=== PATIENT | male | born 1975 | race Caucasian/White ===

== ENCOUNTER 2017-03-05 09:57 | Inpatient (IN) | payer SELFPAY ==
[~2017-03-05] VITALS: Ht 167.6 cm; Wt 85.7 kg
[2017-03-05] MEDS ORDERED: diphenhydrAMINE 50 MG/1 ML VIAL IV ONE (10:09)
[2017-03-05] MEDS ORDERED: LORAZEPAM 2 MG/1 ML VIAL IV ONE ×2 (10:09→13:30)
--- NOTE | 2017-03-05 10:12 | NUR ---
40 years old male biba with bizarre behavior, unable to comprehend, placed on patient monitor continuous pulse safety initiated will continue to monitor.
[2017-03-05] MEDS ORDERED: IV NS 1000 ML 1,000 ML IV ONE ×2 (10:15→12:30)
[2017-03-05] MEDS ORDERED: diphenhydrAMINE 50 MG/1 ML VIAL ONE (10:32)
--- NOTE | 2017-03-05 10:32 | NUR ---
PLANT PATHOLOGY TEACHER HERE TO TALK TO PT. PT IS ANSWERING QUESTIONS APPROPRIATELY AT THIS TIME. PREVIOUSLY MEDICATED WITH LORAZEPAM PER MD ORDER.
[2017-03-05] MEDS ORDERED: LORAZEPAM 2 MG/1 ML VIAL ONE ×2 (10:33→13:43)
--- NOTE | 2017-03-05 10:33 | NUR ---
police at bedside to interview pt, lab chest x-ray completed result in progress will continue to monitor.
[2017-03-05 10:34] LABS: BASOPHILS # (AUTO) 0.3 K/uL (0.0-8.0); BASOPHILS % (AUTO) 4.3 % (0.0-2.0); EOSINOPHILS % (AUTO) 0.5 % (0.0-7.0); HEMATOCRIT 44.6 % (40-50); HEMOGLOBIN 14.9 G/DL (14.0-18.0); LYMPHOCYTES # (AUTO) 1.8 K/UL (0.8-4.8); LYMPHOCYTES % (AUTO) 25.3 % (20.5-51.5); MEAN CORPUSCULAR HEMOGLOBIN 29.9 UUG (27.0-31.0); MEAN CORPUSCULAR HGB CONC 33 g/dL (32.0-37.0); MEAN CORPUSCULAR VOLUME 89.7 FL (82.0-92.0); MONOCYTES # (AUTO) 0.6 K/UL (0.1-1.30); MONOCYTES % (AUTO) 8.7 % (0.0-11.0); NEUTROPHILS # (AUTO) 4.2 K/UL (1.8-8.9); NEUTROPHILS % (AUTO) 61.2 % (38.5-71.5); PLATELET COUNT (AUTO) 385 K/UL (150-450); RED BLOOD CELL COUNT(AUTO) 4.97 MIL/UL (4.7-6.1); WHITE BLOOD COUNT (AUTO) 6.9 K/UL (4.0-11.2)
--- NOTE | 2017-03-05 11:07 | NUR ---
pt awake denies pain ambulate to bathroom with steady gait vital stable will continue to monitor.
--- NOTE | 2017-03-05 11:19 | NUR ---
urine collected/sent.
[2017-03-05 11:28] LABS: CREATININE 1.1 mg/dL (0.6-1.3); POTASSIUM 3.3 mmol/L (3.5-5.1)
[2017-03-05 11:34] LABS: BILIRUBIN,TOTAL 0.4 mg/dL (0.2-1.0); TOTAL PROTEIN, SERUM 7.3 g/dL (6.4-8.2)
[2017-03-05 11:50] LABS: *BILIRUBIN,URIN NEGATIVE (NEGATIVE); *BLOOD, URINE NEGATIVE (NEGATIVE); *CLARITY,URINE CLEAR (CLEAR); *COLOR,URINE YELLOW (YELLOW); *KETONES,URINE 1+ (NEGATIVE); *PROTEIN,URINE NEGATIVE (NEGATIVE); LEUKOCYTE ESTERASE ,URINE NEGATIVE (NEGATIVE); NITRITE, URINE NEGATIVE (NEGATIVE); PH,URINE 8.5 (5.0-8.0); UGLUCOSE NEGATIVE (NEGATIVE)
--- NOTE | 2017-03-05 12:16 | NUR ---
pt sleeping, pt in custody police at bedside awaitign for okay to book.
[2017-03-05 12:20] LABS: BACTERIA,URINE NONE SEEN /HPF (NONE SEEN); RBC,URINE NONE SEEN /HPF (0-3); SQUAMOUS EPITHELIAL CELL,UR FEW /HPF (NONE SEEN); WBC,URINE 0-3 /HPF (0-3)
[2017-03-05 12:20] LABS: *AMPHETAMINE, URINE NEGATIVE (NEGATIVE); *BARBITURATE, URINE NEGATIVE (NEGATIVE); *CANNABINOID, URINE NEGATIVE (NEGATIVE); *COCCAINE, URINE POSITIVE (NEGATIVE); *OPIATE, URINE NEGATIVE (NEGATIVE); *PHENCYCLIDINE SCREEN,URINE NEGATIVE (NEGATIVE)
[2017-03-05] MEDS ORDERED: POTASSIUM CHLORIDE 20 MEQ TAB.PRT.SR PO ONE (12:47)
--- NOTE | 2017-03-05 12:50 | NUR ---
pt stable for transfer to unit tele room 206, report given to nurse Fulton all questions answered. pt alert, verbally responsive able to follow simple commands.
[2017-03-05] MEDS ORDERED: POTASSIUM CHLORIDE 20 MEQ POWDER PACKET ONE (13:10)
[2017-03-05] MEDS ORDERED: IV NS 1000 ML 1,000 ML IV PRN (13:13)
[2017-03-05] MEDS ORDERED: HYDROCODONE/APAP 5-325MG TABLET PO PRN (13:15)
[2017-03-05] MEDS ORDERED: MAGNESIUM HYDROXIDE 30 ML LIQUID UDC PO PRN (13:15)
[2017-03-05] MEDS ORDERED: ONDANSETRON 4 MG/2 ML VIAL IV PRN (13:15)
[2017-03-05] MEDS ORDERED: Z GUARD REMEDY PASTE 57 GM TUBE TOP PRN (13:15)
[2017-03-05] MEDS ORDERED: ACETAMINOPHEN 325 MG TABLET PO PRN (13:15)
[2017-03-05] MEDS ORDERED: OLANZAPINE 10 MG VIAL IM ONE ×2 (13:30→13:46)
--- NOTE | 2017-03-05 15:07 | NUR ---
received from ER per favio patel, oriented to self, place and month and day but not year, tele applied, SR, denies of pain, routine admission care done, assessment done, denies of use of substance/drugs, safety measures initiated, bed alarm on
[2017-03-05 15:44] VITALS: BP 151/102
--- NOTE | 2017-03-05 17:00 | NUR ---
family at bedside, states feels good and wanted to go home, family talking to him to stay for monitoring.
--- NOTE | 2017-03-05 17:30 | NUR ---
took off monitor and refused IV fluids to be started, Dad at bedside
--- NOTE | 2017-03-05 18:18 | NUR ---
up and about in the room, no distress noted, family with him
--- NOTE | 2017-03-05 19:30 | NUR ---
nsg: pt received alert oriented to self only. recognizes family members. needs to be oriented to place, time and situation. anxious. will call md for an anti- anxiety per family's request. cont to monitor.
[2017-03-05 20:00] VITALS: BP 156/98
--- NOTE | 2017-03-05 20:20 | NUR ---
nsg: brother came to stay with patient and father. informed brother regarding pt situation at this time.
[2017-03-05] MEDS: LORAZEPAM 2 MG/1 ML VIAL IV PRN (20:36)
--- NOTE | 2017-03-05 20:36 | NUR ---
nsg: medicated with ativan 1mg ivp. family at the bedside.
--- NOTE | 2017-03-05 23:00 | NUR ---
NSG: Pt tried to leave ama. pt is disoriented. father with patient. father does not want patient to leave ama. called brother, Dexter. per brother, león bro will be coming to stay with patient. talked to patient. assisted back to the room.
--- NOTE | 2017-03-06 05:15 | NUR ---
nsg: pt awake entire night. still confused. father at the bedside.
--- NOTE | 2017-03-06 05:20 | NUR ---
nsg: pt refused ivf.
--- NOTE | 2017-03-06 06:00 | NUR ---
nsg: pt pulled out saline lock.
[2017-03-06 06:21] VITALS: BP 150/98
[2017-03-06 06:56] LABS: BASOPHILS % (AUTO) 0.5 % (0.0-2.0); EOSINOPHILS % (AUTO) 0.4 % (0.0-7.0); HEMOGLOBIN 15.4 g/dL (12.5-16.3); LYMPHOCYTES # (AUTO) 1.7 K/uL (20.0-40.0); LYMPHOCYTES % (AUTO) 21.1 % (20.5-51.5); MEAN CORPUSCULAR HEMOGLOBIN 31.2 uug (23.8-33.4); MEAN CORPUSCULAR HGB CONC 34 g/dL (32.5-36.3); MEAN CORPUSCULAR VOLUME 90.9 fL (73.0-96.2); MONOCYTES # (AUTO) 0.8 K/uL (2.0-10.0); MONOCYTES % (AUTO) 9.5 % (0.0-11.0); NEUTROPHILS # (AUTO) 5.6 K/uL (1.8-8.9); NEUTROPHILS % (AUTO) 68.5 % (38.5-71.5); PLATELET COUNT (AUTO) 351 K/uL (152-348); RED BLOOD CELL COUNT(AUTO) 4.95 MIL/uL (4.06-5.63); WHITE BLOOD COUNT (AUTO) 8.2 K/uL (3.6-10.2)
[2017-03-06 07:19] LABS: BILIRUBIN,DIRECT 0.2 mg/dL (0.0-0.2); BILIRUBIN,TOTAL 0.7 mg/dL (0.2-1.0); CREATININE 0.9 mg/dL (0.6-1.3); MAGNESIUM 2.3 mg/dL (1.8-2.4); PHOSPHOROUS 4.4 mg/dL (2.5-4.9); POTASSIUM 3.8 mmol/L (3.5-5.1); TOTAL PROTEIN, SERUM 7.7 g/dL (6.4-8.2)
[2017-03-06 07:21] LABS: THYROID STIMULATING HORMONE 1.533 mIU/mL (0.358-3.740)
--- NOTE | 2017-03-06 08:30 | NUR ---
RESTING QUIET IN BED NO SOB OR PAIN FAMILY AT BEDSIDE REFUSED TO RESTART A NEW IV LINE WILL DO LATER ON FALL PRECAUTION BED ALARM ON AND CALL TIM IN REACH
--- NOTE | 2017-03-06 11:00 | NUR ---
YIMI SEE PATIENT AND LAB RESULT AND STATE HE NEED IVF ,EXPLAINED TO FAMILY AND PATIENT THEN HE WAS AGREE TO DO IT
[2017-03-06 11:50] VITALS: BP 164/97
[2017-03-06] MEDS: LORAZEPAM 2 MG/1 ML VIAL IV PRN (12:00)
--- NOTE | 2017-03-06 12:00 | NUR ---
START NEW IV LINE #20 RFA AND CONTINUE IVF AT 150ML/HR AND ENC TO DRINK PO FLD
[2017-03-06 15:47] VITALS: BP 164/107
--- NOTE | 2017-03-06 16:00 | NUR ---
REFUSED TO TAKE TYLENOL FOR LOW GRADE TEMP PO FLD ENC MACHELLE MOD AMT NO SOB OR PAIN CALM AT THIS TIME
--- NOTE | 2017-03-06 16:41 | NUR ---
Patient is remaining in his room on medsurg. with father and brother present in his room at all times. Patient is guarded and paranoid but denies any wish to harm himself or anyone else. He is allowing nurse to give him IVS and Ativan but refusing blood draws and all labs. Patient told this deli/bakery associate, " just slide the bill under my door." Computer Network Support Specialist explained she was not there to discuss his hospital bill. Patient would not disclose where he is going after discharge. Brother and father are caring and involved. Pt. was given three referrals which brother took to coordinate for drug rehabilitation : [facility] [phone], [id number] [facility] [place], [id number] [facility] [id number], [facility], [facility] [id number]. Pt. is paranoid but also may be concerned about arrest and his problems with the law. He is able to problem-solve. He has $1800.00 on him so can pay for a motel or hotel if he chooses. This social studies department chair educated him re substance abuse and provided options for treatment. It is unclear whether or not pt. is schizophrenic since cocaine ingestion causes severe paranoia too. No diagnosis can be made due to his high cocaine levels, witholding of information and possible ingestion of other substances. Dr Urrutia states that pt. is medically clear.he is also refusing labs. in the hospital so is not cooperating with treatment. Katelynn meyers RN notified of plan and requested copy of treatment programs that were provided to pt. Pt is free to leave as soon as nursing discharges him. Dr Urrutia wrote discharge order for today. Patient will go home in the care of his brother and father who are in his room and expecting discharge this evening.
--- NOTE | 2017-03-06 18:00 | NUR ---
D/C HOME INSTRUCTION REGARDING TO F/U AT REHAB UNIT INSTRUCTION SHEET GIVEN TO FAMILY BROTHER AND FATHER .VARBALIZES UNDERSTAND AND D/C SHEET SIGNS BY BROTHER
--- NOTE | 2017-03-06 19:00 | NUR ---
D/C HOME WITH HIS BELONGING CONDITION STABLE ACCOMPANIES WITH FATHER AND BROTHER
== END 2017-03-06 19:05 | disposition home or self-care (01) | DRG 557 ==
LOC: EDBD 09:57 → ER 09:57 → TELE 14:51 → MED 18:07
PROVIDERS: ADMIT Internal Medicine; ATTEND Internal Medicine
DX: M62.82 Rhabdomyolysis (principal); G92 Toxic encephalopathy; E87.6 Hypokalemia; R73.9 Hyperglycemia, unspecified; R74.0 Nonspecific elevation of levels of transaminase and lactic acid dehydrogenase [LDH]; F19.11 Other psychoactive substance abuse, in remission; F14.90 Cocaine use, unspecified, uncomplicated
CPT/HCPCS: 36415; 70030-TC; 71010; 80307; 83735; 84100; 84443; 85025; 85610; 93005; A4663; J1200; J2060; J2358; J7030